=== PATIENT | female | born 1990 | race Caucasian/White ===

== ENCOUNTER 2019-05-30 11:08 | Emergency (ER) | payer OTHER ==
[2019-05-30 11:56] LABS: EOS # 0.2 (0.04-0.40); HEMATOCRIT 41.2 % (37.0-47.0); LYMPH# 1.3 (1.50-4.00); MEAN CELL VOLUME 81 fl (78-100); MEAN CORPUSCULAR HEMOGLOBIN 26 pg (27-31); MEAN CORPUSCULAR HGB CONC 32 g/dL (33-37); MEAN PLATELET VOLUME 10.1 fl (7.4-10.4); MONO # 0.6 (0.20-0.80); NEU # 5.2 (1.40-6.50); PLATELET COUNT 397 K/mm3 (130-400); RED CELL DISTRIBUTION WIDTH 17.3 % (11.5-14.5); WHITE BLOOD COUNT 7.3 K/mm3 (4.8-10.8)
[2019-05-30 12:03] LABS: ALBUMIN 4.7 g/dL (3.5-5.0)
[2019-05-30 12:04] LABS: POTASSIUM 4.3 mmol/L (3.5-5.1); SODIUM 136 mmol/L (136-145)
[2019-05-30 12:05] LABS: CALCIUM 9.8 mg/dL (8.3-10.5)
[2019-05-30 12:06] LABS: GLUCOSE 92 mg/dL (65-105); TOTAL PROTEIN 7.6 g/dL (6.4-8.3)
[2019-05-30 12:07] LABS: CARBON DIOXIDE 25 mmol/L (22-29)
[2019-05-30 12:11] LABS: AST-SGOT 11 U/L (5-34)
[2019-05-30 12:13] LABS: ALT/SGPT 8 U/L (0-55)
[2019-05-30 12:14] LABS: ACETAMINOPHEN < 1 ug/mL; ALCOHOL IN-HOUSE < 10 mg/dL (<10)
[2019-05-30 13:41] VITALS: BP 121/91
== END 2019-05-30 14:15 ==
LOC: ED 11:08
PROVIDERS: Physician Assistant
DX: R45.851 Suicidal ideations (principal); F32.9 Major depressive disorder, single episode, unspecified; F41.9 Anxiety disorder, unspecified; F60.3 Borderline personality disorder; F17.210 Nicotine dependence, cigarettes, uncomplicated